=== PATIENT | female | born 1970 | race Caucasian/White ===

== ENCOUNTER 2017-03-01 11:16 | Emergency (ER) | payer OTHER ==
[~2017-03-01] VITALS: Ht 162.6 cm; Wt 68.0 kg
[2017-03-01 13:48] LABS: EOSINOPHIL (%) 0.1 % (0-5); HEMATOCRIT 44.7 % (36.0-46.0); IMMATURE GRANULOCYTE (%) 0.4 % (0.0-0.7); INSTRUMENT ABS NEUTROPHIL CT 8.4 K/uL; LYMPHOCYTE COUNT 1.2 K/uL (1.0-2.8); MCHC 34.5 G/DL (30.0-36.0); MCV 87.1 FL (83-99); MONOCYTE (%) 5.6 % (3-12); MONOCYTE COUNT 0.6 K/uL (0-0.8); NEUTROPHIL (%) 81.6 % (45-76); NEUTROPHIL COUNT 8.4 K/uL (1.8-6.4); PLATELET COUNT 382 K/uL (156-360); RBC DIS.WIDTH-CV 12.8 % (11.8-14.6); RBC DIS.WIDTH-SD 40.7 % (39-53); RED BLOOD COUNT 5.13 M/uL (3.80-5.20); WHITE BLOOD COUNT 10.3 K/uL (4.1-10.2)
[2017-03-01 13:56] LABS: CHLORIDE 102 mEq/L (99-109); POTASSIUM 4.7 mEq/L (3.7-5.4); SODIUM 140 mEq/L (136-147)
[2017-03-01 13:57] LABS: GLUCOSE 133 mg/dL (70-99)
[2017-03-01 13:58] LABS: D-DIMER ELISA < 150.00 ng/mLDDU (<230)
[2017-03-01 13:59] LABS: ANION GAP 12 MEQ/L (2-14)
[2017-03-01 14:01] LABS: GFR ESTIMATE (CALCULATED) > 59 mL/min/
[2017-03-01 14:02] LABS: UREA NITROGEN (BUN) 10 mg/dL (9-23)
[2017-03-01 14:09] LABS: TROP-I INTERPRETATION NEGATIVE; TROPONIN-I < 0.01 ng/mL (0.0-0.30)
[2017-03-01] MEDS ORDERED: XANAX0.5 MG PO (14:45)
[2017-03-01 15:17] VITALS: BP 137/89
== END 2017-03-01 15:27 | disposition home or self-care (01) ==
LOC: EME 11:16
PROVIDERS: Emergency Medicine
DX: F41.1 Generalized anxiety disorder (principal); R00.2 Palpitations; F41.0 Panic disorder [episodic paroxysmal anxiety]; F32.9 Major depressive disorder, single episode, unspecified
CPT/HCPCS: 71010; 80048; 84484; 85025; 85379; 90839; 93005; 99281; 99284